=== PATIENT | female | born 1985 | race Caucasian/White ===

== ENCOUNTER 2021-10-23 02:20 | Emergency (ER) | payer OTHER, SELFPAY ==
[2021-10-23 02:32] VITALS: BP 116/77; PULSE 85; RESP 20; TEMP 36.7; O2SAT 100; BMI 22.3
[2021-10-23 02:37] VITALS: BP 116/71; PULSE 84; RESP 29; O2SAT 100
--- NOTE | 2021-10-23 02:50 | W.ED.SOB ---
HPI - SOB/Dyspnea General: Chief Complaint: Shortness of Breath/Dyspnea Stated Complaint: SOB Time Seen by Provider: 10/23/21 02:41 History of Present Illness: HPI Narrative: 36-year-old female presenting today with shortness of breath. Patient notes sudden onset of shortness of breath while at work. Patient has a significant history of asthma. Tried to take her albuterol MDI without improvement. She notes current symptoms are typical to prior asthma. She denies fevers or chills. She denies pain or swelling her lower extremities. She denies history of blood clots. She denies recent travel or recent surgeries. He is on a [employer] control. Review of Systems General: Reports: 10 or more systems reviewed and unremarkable except in HPI and below PFSH ED PFSH: Family History (Updated 04/10/19 @ 10:36 by Teresa Escobedo LPN) Other Cancer Social History (Updated 04/10/19 @ 10:37 by Teresa Escobedo LPN) Smoking and tobacco status: never smoked Alcohol intake: current Physical Exam Const: COMMON NORMALS: no acute distress, patient oriented x3 and alert GENERAL APPEARANCE: cooperative ORIENTATION/CONSCIOUSNESS: Yes awake, Yes oriented to person, Yes oriented to place and Yes oriented to time HENMT: COMMON NORMALS: normocephalic, atraumatic, external ears normal, Normal external nose present and moist oral mucous membranes HEAD & SCALP: normal to inspection, normocephalic and atraumatic NOSE: Normal external nose present GENERAL EAR: hearing grossly impaired EXTERNAL EAR: Yes external ears normal Eye: COMMON NORMALS: Equal, round and reactive pupils present, EOMs intact bilaterally, conjunctivae normal and no scleral icterus GENERAL EYE: appearance normal, both eyes and all related structures EYELID: eyelids normal CONJUNCTIVA: Yes conjunctivae normal SCLERA: sclerae normal PUPIL: Yes Equal, round and reactive pupils present Neck/C-Spine: COMMON NORMALS: full ROM, supple and no JVD GENERAL: Yes normal visual inspection Lymph: LYMPHATIC: no lymphadenopathy noted and no lymphedema noted Chest: COMMONS NORMALS: normal inspection of the chest Resp: COMMON NORMALS: normal respiratory effort, No retractions and No use of accessory muscles; negative for clear to auscultation bilaterally (Poor respiratory movement.) AUSCULTATION: not clear to auscultation bilaterally (Poor respiratory movement.) Cardio: COMMON NORMALS: no JVD, regular rate and regular rhythm RATE: regular rate RHYTHM: regular rhythm GI: COMMON NORMALS: Normal to inspection, nondistended, normoactive bowel sounds present : COMMON NORMALS: Yes no CVA tenderness BLADDER/KIDNEY EXAM: Yes no CVA tenderness Back/Pelvis: COMMON NORMALS: no CVA tenderness and thoracic and lumbar spine normal to inspection Extremity: COMMON NORMALS: normal to inspection, full ROM and capillary refill normal GENERAL: Yes normal exam except as noted Neuro: COMMON NORMALS: patient oriented x3, CN's II-XII intact bilaterally, moves all extremities, no focal motor deficits, no sensory deficits noted and gait normal SENSORIUM/ORIENTATION: Yes alert, Yes oriented to person, Yes oriented to place and Yes oriented to time Psych: COMMON NORMALS: mental status grossly normal, Normal thought process present, cooperative and normal affect THOUGHT PROCESS: Normal thought process present Skin: COMMON NORMALS: no rashes or lesions noted and no wounds GENERAL SKIN EXAM: no rashes or lesions noted Course Vital Signs: Vital signs: Vital Signs Temperature 98.0 F 10/23/21 02:32 Pulse Rate 73 10/23/21 03:35 Respiratory Rate 16 10/23/21 03:35 Blood Pressure 116/77 10/23/21 03:07 Pulse Oximetry 100 10/23/21 03:35 Oxygen Delivery Me thod 10/23/21 03:35 MDM - SOB/Dyspnea Medical Decision Making 36-year-old female presenting today with shortness of breath. Lung exam with diffuse tightness. Patient started on DuoNeb as well as Decadron. CBC and CMP within normal limits. Patient's D-dimer negative. Low risk by Wells. Low suspicion for pulmonary embolism. Suspect asthma exacerbation. Strict return precautions given. Recommended routine outpatient follow-up. Lab Data : 10/23/21 02:45 10/23/21 02:45 Labs/Radiology: Laboratory Results WBC 8.8 10^3/uL (4.0-10.0) 10/23/21 02:45 RBC 4.04 10^6/uL (4.1-5.3) L 10/23/21 02:45 Hgb 12.5 g/dL (11.5-15.3) 10/23/21 02:45 Hct 37.5 % (37.0-47.0) 10/23/21 02:45 MCV 92.8 fl (81-99) 10/23/21 02:45 MCH 30.9 pg (28.0-34.0) 10/23/21 02:45 MCHC 33.3 g/dL (30.0-36.0) 10/23/21 02:45 RDW 11.9 % (12.1-15.1) L 10/23/21 02:45 Plt Count 209 10^3/cmm (130-400) 10/23/21 02:45 MPV 11.1 fL (7.4-10.4) H 10/23/21 02:45 Neut % (Auto) 72.3 % 10/23/21 02:45 Lymph % (Auto) 21.6 % 10/23/21 02:45 Atlantic % (Auto) 4.6 % 10/23/21 02:45 Eos % (Auto) 0.2 % 10/23/21 02:45 Baso % (Auto) 0.8 % 10/23/21 02:45 Neut # (Auto) 6.34 10^3/uL (1.8-7.7) 10/23/21 02:45 Lymph # (Auto) 1.9 10^3/uL (0.8-4.8) 10/23/21 02:45 Atlantic # (Auto) 0.4 10^3/uL (0.2-0.9) 10/23/21 02:45 Eos # (Auto) 0.0 10^3/uL (0.0-0.8) 10/23/21 02:45 Baso # (Auto) 0.1 10^3/uL (0.0-0.1) 10/23/21 02:45 Nucleated RBC % (auto) 0 % 10/23/21 02:45 Nucleated RBCs # 0.0 /100WBC 10/23/21 02:45 D-Dimer <= 0.27 ug/mIFEU (0-0.59) 10/23/21 03:22 Sodium 141 mmol/L (136-145) 10/23/21 02:45 Potassium 3.6 mmol/L (3.5-5.1) 10/23/21 02:45 Chloride 108 mmol/L (98-107) H 10/23/21 02:45 Carbon Dioxide 20 mmol/L (22-29) L 10/23/21 02:45 Anion Gap 16.6 (5-19) 10/23/21 02:45 BUN 15 mg/dL (6-20) 10/23/21 02:45 Creatinine 0.7 mg/dL (0.5-0.9) 10/23/21 02:45 GFR Calculation 94.2 mL/min (90-130) 10/23/21 02:45 Glucose 90 mg/dL (65-115) 10/23/21 02:45 Calculated Osmolality 292 mOsm/kg (285-295) 10/23/21 02:45 Calcium 9.0 mg/dL (8.5-10.5) 10/23/21 02:45 Total Bilirubin 0.3 mg/dL (0.15-1.2) 10/23/21 02:45 AST 18 U/L (0-32) 10/23/21 02:45 ALT 12 U/L (0-33) 10/23/21 02:45 Alkaline Phosphatase 94 IU/L (35-105) 10/23/21 02:45 Total Protein 6.5 g/dL (6.6-8.7) L 10/23/21 02:45 Albumin 4.5 g/dL (3.5-5.2) 10/23/21 02:45 Globulin 2.0 g/dL (1.3-4.6) 10/23/21 02:45 Discharge Plan Discharge Patient Disposition: Home Clinical Impression: Asthma with exacerbation Condition: Stable Prescriptions: No Action diltiazem HCl 120 mg capsule,extended release 24 hr 120 mg PO QAM montelukast [Singulair] 10 mg tablet 10 mg PO QDAY ferrous gluconate 325 mg (36 mg iron) tablet 325 mg PO QDAY sumatriptan succinate 50 mg tablet See Rx Instructions PO .COMPLEX Rx Instructions: 1 tab at the onset of headache may take 1 tab in 2 hours amitriptyline 25 mg tablet 25 mg PO QDAY PRN Rx Instructions: q hs Nexplanon 68 mg implant 1 implant SUBDERMAL ONCE multivitamin Tablet 1 tab PO QAM acetaminophen [Tylenol] 325 mg tablet 650 mg PO Q6H PRN ibuprofen 200 mg capsule 200 mg PO Q6H PRN fluticasone propion-salmeterol [Advair Diskus] 250-50 mcg/dose blister with device 1 inh INHALATION BID Discharge Orders: Discharge ED (Routine); Ordered 10/23/21 Ordered By: Mahesh Sandra Referrals: Nicol Garcia PA [Primary Care Provider] - Discharge Diet: Usual diet Discharge Activity: Resume usual activity Patient Instructions: Opioid Safety, Asthma Exacerbation - Adult Coding Level of Care Code ED Behavioral Health Assistant for Chg Fwd Exam Comprehensive
[2021-10-23] MEDS: dexamethasone 10 mg/mL INJ IVP (03:01)
[2021-10-23 03:05] LABS: Basophils # 0.1 10^3/uL (0.0-0.1); Basophils % 0.8 %; Eosinophils % 0.2 %; Hematocrit 37.5 % (37.0-47.0); Hemoglobin 12.5 g/dL (11.5-15.3); Lymphocytes # 1.9 10^3/uL (0.8-4.8); Lymphocytes % 21.6 %; Mean Corpuscular HGB Conc 33.3 g/dL (30.0-36.0); Mean Corpuscular Hemoglobin 30.9 pg (28.0-34.0); Mean Corpuscular Volume 92.8 fl (81-99); Mean Platelet Volume 11.1 fL (7.4-10.4); Monocytes # 0.4 10^3/uL (0.2-0.9); Monocytes % 4.6 %; Neutrophils # 6.34 10^3/uL (1.8-7.7); Neutrophils % 72.3 %; Nucleated Red Blood Cells % 0 %; Platelet Count 209 10^3/cmm (130-400); Red Blood Count 4.04 10^6/uL (4.1-5.3); Red Cell Distribution Width 11.9 % (12.1-15.1); White Blood Count 8.8 10^3/uL (4.0-10.0)
[2021-10-23 03:07] VITALS: BP 116/77; PULSE 75; RESP 37; O2SAT 100
--- NOTE | 2021-10-23 03:07 | PC.NURSE ---
respiratory notified of pending medication orders.
--- NOTE | 2021-10-23 03:24 | PC.NURSE ---
blood drawn from peripheral iv in left ac per protocol and taken to lab.
[2021-10-23 03:28] LABS: Alanine Aminotransferase 12 U/L (0-33); Albumin Level 4.5 g/dL (3.5-5.2); Alkaline Phosphatase 94 IU/L (35-105); Anion Gap 16.6 (5-19); Aspartate Amino Transferase 18 U/L (0-32); Blood Urea Nitrogen 15 mg/dL (6-20); Carbon Dioxide 20 mmol/L (22-29); Chloride 108 mmol/L (98-107); Glomerular Filtration Rate 94.2 mL/min (90-130); Glucose 90 mg/dL (65-115); Osmolality Calculated 292 mOsm/kg (285-295); Potassium 3.6 mmol/L (3.5-5.1); Sodium 141 mmol/L (136-145); Total Bilirubin 0.3 mg/dL (0.15-1.2); Total Protein 6.5 g/dL (6.6-8.7)
[2021-10-23] MEDS: ipratropium-albuterol 3 mL Neb 9 ML INHALATION (03:33)
[2021-10-23 03:35] VITALS: PULSE 73; RESP 16; O2SAT 100
[2021-10-23 03:43] LABS: D Dimer <= 0.27 ug/mIFEU (0-0.59)
[2021-10-23 04:05] VITALS: RESP 25; O2SAT 100
== END 2021-10-23 04:13 | disposition home or self-care (01) ==
PROVIDERS: Emergency Provider Emergency Medicine; PCP Physician Assistant
DX: J45.901 Unspecified asthma with (acute) exacerbation (principal)
CPT/HCPCS: 80053; 85025; 85378; 94640; 96374; 99284; J1100

== ENCOUNTER 2022-08-09 06:38 | Outpatient (CLI) | payer OTHER, SELFPAY ==
[2022-08-09 07:39] LABS: 25 Hydroxy Vitamin D 30 ng/mL (30-100); Homocysteine 4.88; Magnesium 2.1 mg/dL (1.7-2.3); Vitamin B12 603 pg/mL (232-1245)
[2022-08-09 09:04] LABS: Folate Level > 20.0 ng/mL (4.8-37.3)
[2022-08-09 09:25] LABS: Free T4 Free Thyroxine 0.88 ng/dL (0.82-1.77); T3 Free 2.4 PG/ML (2.0-4.4)
[2022-08-14 10:06] LABS: Zonisamide (Zonegran) 31.9 mcg/mL (10.0-40.0)
[2022-08-16 00:59] LABS: Methylmalonic Acid 90 nmol/L (87-318)
== END 2022-08-09 06:39 | disposition home or self-care (01) ==
LOC: LAB 06:42
PROVIDERS: PCP Nurse Practitioner Primary Care; Visit Provider Psychiatry & Neurology Neurology
DX: G40.419 Other generalized epilepsy and epileptic syndromes, intractable, without status epilepticus (principal); R29.90 Unspecified symptoms and signs involving the nervous system; G43.909 Migraine, unspecified, not intractable, without status migrainosus; J45.909 Unspecified asthma, uncomplicated
CPT/HCPCS: 36415; 80203; 82306; 82607; 82746; 83090; 83735; 83921; 84439; 84443; 84481

== ENCOUNTER 2022-08-24 07:10 | Outpatient (CLI) | payer OTHER, SELFPAY ==
--- NOTE | 2022-08-24 08:00 | MR_ITS ---
WS: [id number] MRI BRAIN WITH AND WITHOUT CONTRAST HISTORY: R29.90 - Unspecified symptoms and signs involving the nervous system. History of seizures. COMPARISON: 08/16/2018 TECHNIQUE: Multiplanar imaging performed through the brain with MultiHance 13 ml's IV. No acute infarcts are seen. Medrano-white matter differentiation is well preserved. No susceptibility artifacts or prior lacunar infarcts. There is very slight asymmetry of the hippocam pal formations. Slightly greater CSF surrounding the LEFT hippocampal formation but there is no signi ficant atrophy or sclerosis of the hippocampal structures. May not be significant. Ventricles and extra-axial spaces are normal. Clivus and pituitary gland are normal. Visualized posterior fossa and brainstem are also normal. Postcontrast images are negative for masses or vascular malformations. Dural venous sinuses are normal. Paranasal sinuses: Very mild mucoperiosteal thickening. No air-fluid levels. Significant improvement in sinus disease since 2019. Mastoid air cells: Small bilateral mastoid air cell effusions. Slightly greater on the RIGHT. Calvarium and scalp: Normal. MR/MR head wo/w con [id number] IMPRESSION: 1. No acute infarcts or enhancing masses. 2. No hydrocephalus. No signal abnormalities within the medrano-white matter. 3. Very minimal asymmetry of the hippocampal formations. Slightly greater CSF surrounding the LEFT hippocampus which could be positional or due to normal ella iation. Mild mesial temporal sclerosis thought less likely.
[2022-08-24] MEDS: gadobenate dimeglumine 20 mL vial IV (08:50)
== END 2022-08-24 07:11 | disposition home or self-care (01) ==
PROVIDERS: PCP Nurse Practitioner Primary Care; Visit Provider Psychiatry & Neurology Neurology
DX: R29.90 Unspecified symptoms and signs involving the nervous system (principal)
CPT/HCPCS: 70553; A9577

== ENCOUNTER 2024-03-01 09:51 | Outpatient (CLI) | payer OTHER, SELFPAY ==
[2024-03-01 10:45] LABS: Valproic Acid Level 18.4 ug/mL (50-100)
== END 2024-03-01 09:52 | disposition home or self-care (01) ==
LOC: LAB 09:53
PROVIDERS: PCP Nurse Practitioner Family; Visit Provider Psychiatry & Neurology Neurology
DX: G40.804 Other epilepsy, intractable, without status epilepticus (principal)
CPT/HCPCS: 36415; 80164; 80203

== ENCOUNTER 2024-06-05 10:29 | Outpatient (CLI) | payer OTHER, SELFPAY ==
[2024-06-05 11:46] LABS: Valproic Acid Level 16.9 ug/mL (50-100)
== END 2024-06-05 10:30 | disposition home or self-care (01) ==
LOC: LAB 10:33
PROVIDERS: PCP Nurse Practitioner Family; Visit Provider Psychiatry & Neurology Neurology
DX: G40.804 Other epilepsy, intractable, without status epilepticus (principal)
CPT/HCPCS: 80164; 80203